=== PATIENT | female | born 1960 | race African-American/Black ===

== ENCOUNTER 2019-03-08 15:10 | Emergency (ER) | payer MEDICAID ==
[~2019-03-08] VITALS: Ht 172.7 cm; Wt 65.4 kg
[2019-03-08 15:14] VITALS: Ht 172.7 cm; Wt 65.4 kg
[2019-03-08 16:07] LABS: microscopic required? YES; urine erythrocyte 2+ (NEGATIVE)
[2019-03-08 17:10] VITALS: BP 152/74
== END 2019-03-08 17:12 | disposition home or self-care (01) ==
LOC: ED 15:10
PROVIDERS: Emergency Medicine
DX: N34.2 Other urethritis (principal); I10 Essential (primary) hypertension; Z88.5 Allergy status to narcotic agent; Z88.8 Allergy status to other drugs, medicaments and biological substances
CPT/HCPCS: 87491; 87591; J0696; J1885